=== PATIENT | male | born 1955 | race Caucasian/White ===

== ENCOUNTER 2021-02-24 16:25 | Inpatient (IN) | payer OTHER ==
[~2021-02-24] VITALS: Ht 193 cm; Wt 121.5 kg
[2021-02-24 18:14] LABS: Hematocrit 39.5 % (41.0-53.0); Hemoglobin 13.4 g/dL (13.5-17.5); Mean Corpuscular Hemoglobin 30.5 pg (28.0-32.0); Mean Corpuscular Volume 89.8 fL (80.0-100.0); Red Cell Distribution Width 14.1 % (11.8-14.3); White Blood Cell 13.6 10^3/uL (4.4-10.8)
[2021-02-24 18:18] LABS: Basophils % (manual) 0 (0.0-2.0); Blast Cells 0; Metamyelocytes % 0; Myelocytes % 0; Promyelocytes % 0
[2021-02-24 18:24] LABS: Albumin 1.9 g/dL (3.4-5.0); BUN/Creatinine Ratio 20.2; Calcium 8.6 mg/dL (8.5-10.1); Potassium 3.9 mmol/L (3.5-5.1)
[2021-02-24 18:26] LABS: Band Neutrophils % (manual) 1; Eosinophils % (manual) 1 (0-7); Lymphocytes % (manual) 9 (10.0-50.0); Monocytes % (manual) 12 (0-12)
[2021-02-24 18:27] LABS: Reactive Lymphocytes 1
[2021-02-24 18:28] LABS: Bilirubin, Total 1.5 mg/dL (0.2-1.0); Total Protein 7.4 g/dL (6.4-8.2)
[2021-02-24] MEDS ORDERED: DexAMETHasone SOD PHOS 10MG/1ML VIAL INJ IV ONE (19:15)
[2021-02-24] MEDS ORDERED: AZITHROMYCIN 500MG/ 250ML 250 ML IV ONE (19:15)
[2021-02-24 21:12] LABS: Urine Bacteria NONE SEEN /hpf (None Seen); Urine Blood Negative /uL (Negative); Urine Hyaline Cast FEW /lpf (0 - 2); Urine Mucus FEW (None Seen); Urine Specific Gravity 1.021 (1.001-1.035); Urine WBC 2 /hpf (0 - 3)
[2021-02-24] MEDS ORDERED: HYDROcodone-ACET 5/325MG TAB PO PRN (21:15)
[2021-02-24] MEDS ORDERED: DOCUSATE SOD 100 MG CAP PO PRN (21:15)
[2021-02-24] MEDS ORDERED: ONDANSETRON HCL 4 MG/2 ML VIAL IV PRN (21:15)
[2021-02-24] MEDS ORDERED: ACETAMINOPHEN 500 MG TAB PO PRN (21:15)
[2021-02-24] MEDS: FAMOTIDINE (10MG/ML) 2ML VL IV SCH (21:45)
[2021-02-24] MEDS: ENOXAPARIN SOD 40 MG/0.4 ML SYRINGE SC SCH (21:45)
[2021-02-24] MEDS: SODIUM CHLOR 0.9% PF (SALINE LOCK) 10ML VIAL/SYR IV SCH (21:45)
[2021-02-24 21:57] LABS: INR 1.49 (0.9-1.15)
[2021-02-24] MEDS: BUDESONIDE (INHALATION) 180 MCG IH IN SCH (22:00)
[2021-02-24 22:39] VITALS: BP 133/83
[2021-02-24] MEDS ORDERED: NITROGLYCERIN 0.4 MG SL TAB SL PRN (23:15)
[2021-02-24] MEDS ORDERED: MORPHINE SULFATE INJECTION 2 MG/ML SYRG IV PRN (23:15)
[2021-02-24] MEDS ORDERED: hydrALAZINE HCL 20 MG/ML VL IV PRN (23:45)
[2021-02-25 01:14] VITALS: BP 133/66
[2021-02-25] MEDS ORDERED: LISI-716 PO (01:55)
[2021-02-25] MEDS ORDERED: LOSA25TA38 PO (01:55)
[2021-02-25] MEDS ORDERED: BENZ100C97 PO (01:55)
[2021-02-25 04:59] VITALS: BP 129/71
[2021-02-25 05:44] LABS: Hematocrit 40.8 % (41.0-53.0); Hemoglobin 13.8 g/dL (13.5-17.5); Mean Corpuscular Hemoglobin 30.6 pg (28.0-32.0); Mean Corpuscular Hgb Conc. 33.9 g/dL (32.0-36.0); Mean Corpuscular Volume 90.2 fL (80.0-100.0); Red Blood Cells 4.52 10^6/uL (4.5-5.90); White Blood Cell 12.6 10^3/uL (4.4-10.8)
[2021-02-25 05:55] LABS: Basophils % (manual) 0 (0.0-2.0); Blast Cells 0; Eosinophils % (manual) 0 (0-7); Metamyelocytes % 0; Promyelocytes % 0; Reactive Lymphocytes 0
[2021-02-25 06:11] LABS: Calcium 8.8 mg/dL (8.5-10.1); Potassium 4.7 mmol/L (3.5-5.1)
[2021-02-25 06:20] LABS: BUN/Creatinine Ratio 21.3; Bilirubin, Total 1.4 mg/dL (0.2-1.0); Total Protein 7.9 g/dL (6.4-8.2)
[2021-02-25] MEDS: SODIUM CHLOR 0.9% PF (SALINE LOCK) 10ML VIAL/SYR IV SCH ×3 (06:34→22:20)
[2021-02-25 07:00] LABS: Band Neutrophils % (manual) 8; Lymphocytes % (manual) 7 (10.0-50.0); Monocytes % (manual) 4 (0-12); Myelocytes % 1
[2021-02-25 09:00] VITALS: BP 136/85
[2021-02-25] MEDS: BUDESONIDE (INHALATION) 180 MCG IH IN SCH ×2 (10:00→19:40)
[2021-02-25] MEDS: cefTRIAXone 1GM/50ML D5W 50 ML IV SCH (10:01)
[2021-02-25] MEDS: DexAMETHasone SOD PHOS 10MG/1ML VIAL INJ IV SCH (10:01)
[2021-02-25] MEDS: FAMOTIDINE (10MG/ML) 2ML VL IV SCH ×2 (10:01→22:20)
[2021-02-25] MEDS: MULTIPLE VITAMIN TAB PO SCH (10:02)
[2021-02-25] MEDS: ASCORBIC ACID 1,000 MG TAB PO SCH (10:02)
[2021-02-25] MEDS: ZINC SULFATE 220mg CAP or TAB PO SCH (10:02)
[2021-02-25] MEDS: ENOXAPARIN SOD 40 MG/0.4 ML SYRINGE SC SCH ×2 (10:02→22:20)
[2021-02-25] MEDS: CHOLECALCIFEROL (VITD3) 2,000 UNIT CAP/TAB PO SCH (10:02)
[2021-02-25] MEDS: AZITHROMYCIN 500MG/ 250ML 250 ML IV SCH (11:05)
[2021-02-25] MEDS ORDERED: REMDESIVIR PER PHARMACY 0 ML IV SCH (11:15)
[2021-02-25] MEDS ORDERED: IOHEXOL 300 MG/ML 100ML BOTTLE IJ ONE (11:58)
[2021-02-25 12:41] VITALS: BP 138/77
[2021-02-25] MEDS ORDERED: REMDESIVIR 200 MG in NS 210ml LOADING DOSE ADULT IV ONE (15:00)
[2021-02-25 17:00] VITALS: BP 138/77
[2021-02-25] MEDS ORDERED: IOHEXOL 350 MG/ML 100ML IJ ONE (17:42)
[2021-02-25] MEDS: ALBUTEROL SULF HFA 90MCG INH 200DOSE IN PRN (19:40)
[2021-02-25 22:00] VITALS: BP 152/85
[2021-02-26 06:00] VITALS: BP 107/61
[2021-02-26] MEDS: SODIUM CHLOR 0.9% PF (SALINE LOCK) 10ML VIAL/SYR IV SCH ×3 (06:26→22:44)
[2021-02-26] MEDS: ALBUTEROL SULF HFA 90MCG INH 200DOSE IN PRN ×2 (06:28→21:22)
[2021-02-26] MEDS: BUDESONIDE (INHALATION) 180 MCG IH IN SCH ×2 (06:28→18:55)
[2021-02-26 07:34] LABS: Basophils # (auto) 0.1 10 ^3/uL (0-0.2); Basophils % (auto) 0.6 % (0.0-2.0); Eosinophils # (auto) 0.1 10 ^3/uL (0-0.8); Eosinophils % (auto) 0.7 % (0.0-7.0); Hematocrit 37.2 % (41.0-53.0); Hemoglobin 12.7 g/dL (13.5-17.5); Lymphocytes # (auto) 1.9 10 ^3/uL (0.4-5.4); Lymphocytes % (auto) 15.8 % (10.0-50.0); Mean Corpuscular Hemoglobin 30.8 pg (28.0-32.0); Mean Corpuscular Hgb Conc. 34.1 g/dL (32.0-36.0); Mean Corpuscular Volume 90.4 fL (80.0-100.0); Monocytes # (auto) 1.3 10 ^3/uL (0-1.3); Monocytes % (auto) 10.9 % (0.0-12.0); Neutrophils # (auto) 8.8 10 ^3/uL (1.6-8.6); Nucleated Red Blood Cells % 0.1 %; Red Blood Cells 4.11 10^6/uL (4.5-5.90); Red Cell Distribution Width 14.4 % (11.8-14.3); White Blood Cell 12.2 10^3/uL (4.4-10.8)
[2021-02-26 07:43] LABS: Calcium 8.5 mg/dL (8.5-10.1); Potassium 4.4 mmol/L (3.5-5.1)
[2021-02-26 07:50] LABS: BUN/Creatinine Ratio 28.4; Bilirubin, Total 0.7 mg/dL (0.2-1.0); Total Protein 6.5 g/dL (6.4-8.2)
[2021-02-26 09:00] VITALS: BP 138/71
[2021-02-26] MEDS: cefTRIAXone 1GM/50ML D5W 50 ML IV SCH (09:24)
[2021-02-26] MEDS: MULTIPLE VITAMIN TAB PO SCH (09:24)
[2021-02-26] MEDS: DexAMETHasone SOD PHOS 10MG/1ML VIAL INJ IV SCH (09:24)
[2021-02-26] MEDS: FAMOTIDINE (10MG/ML) 2ML VL IV SCH ×2 (09:24→22:44)
[2021-02-26] MEDS: ZINC SULFATE 220mg CAP or TAB PO SCH (09:24)
[2021-02-26] MEDS: CHOLECALCIFEROL (VITD3) 2,000 UNIT CAP/TAB PO SCH (09:27)
[2021-02-26] MEDS: ASCORBIC ACID 1,000 MG TAB PO SCH (09:27)
[2021-02-26] MEDS: ENOXAPARIN SOD 40 MG/0.4 ML SYRINGE SC SCH ×2 (09:27→22:44)
[2021-02-26] MEDS: AZITHROMYCIN 500MG/ 250ML 250 ML IV SCH (11:02)
[2021-02-26] MEDS ORDERED: FUROSEMIDE 20 MG/2 ML VIAL IV ONE (11:30)
[2021-02-26] MEDS ORDERED: POTASSIUM CHL 20 Meq TABLET PO ONE (11:30)
[2021-02-26 13:00] VITALS: BP 126/78
[2021-02-26] MEDS: REMDESIVIR 100mg 100 MG in SODIUM CHL 0.9% 230 ML IV SCH (14:06)
[2021-02-26 17:00] VITALS: BP 138/79
[2021-02-26 22:00] VITALS: BP 119/61
[2021-02-27 04:48] VITALS: BP 107/68
[2021-02-27] MEDS: BUDESONIDE (INHALATION) 180 MCG IH IN SCH ×2 (05:54→20:21)
[2021-02-27] MEDS: ALBUTEROL SULF HFA 90MCG INH 200DOSE IN PRN ×2 (05:54→20:21)
[2021-02-27 07:22] LABS: Albumin 2.5 g/dL (3.4-5.0); Potassium 4.7 mmol/L (3.5-5.1)
[2021-02-27 07:28] LABS: BUN/Creatinine Ratio 31.4; Bilirubin, Total 0.8 mg/dL (0.2-1.0); Calcium 8.9 mg/dL (8.5-10.1); Total Protein 7.2 g/dL (6.4-8.2)
[2021-02-27 09:00] VITALS: BP 117/77
[2021-02-27] MEDS: ZINC SULFATE 220mg CAP or TAB PO SCH (09:12)
[2021-02-27] MEDS: FUROSEMIDE 20 MG/2 ML VIAL IV SCH (09:12)
[2021-02-27] MEDS: FAMOTIDINE (10MG/ML) 2ML VL IV SCH (09:12)
[2021-02-27] MEDS: DexAMETHasone SOD PHOS 10MG/1ML VIAL INJ IV SCH (09:12)
[2021-02-27] MEDS: cefTRIAXone 1GM/50ML D5W 50 ML IV SCH (09:12)
[2021-02-27] MEDS: POTASSIUM CHL 20 Meq TABLET PO SCH (09:13)
[2021-02-27] MEDS: CHOLECALCIFEROL (VITD3) 2,000 UNIT CAP/TAB PO SCH (09:13)
[2021-02-27] MEDS: MULTIPLE VITAMIN TAB PO SCH (09:13)
[2021-02-27] MEDS: ENOXAPARIN SOD 40 MG/0.4 ML SYRINGE SC SCH ×2 (09:13→22:32)
[2021-02-27] MEDS: ASCORBIC ACID 1,000 MG TAB PO SCH (09:13)
[2021-02-27] MEDS: AZITHROMYCIN 500MG/ 250ML 250 ML IV SCH (10:29)
[2021-02-27 13:00] VITALS: BP 125/84
[2021-02-27] MEDS: SODIUM CHLOR 0.9% PF (SALINE LOCK) 10ML VIAL/SYR IV SCH ×2 (14:53→22:32)
[2021-02-27] MEDS: REMDESIVIR 100mg 100 MG in SODIUM CHL 0.9% 230 ML IV SCH (14:53)
[2021-02-27 17:00] VITALS: BP 136/79
[2021-02-27 22:00] VITALS: BP 143/73
[2021-02-28 02:30] VITALS: BP 143/73
[2021-02-28 05:00] VITALS: BP 138/79
[2021-02-28] MEDS: SODIUM CHLOR 0.9% PF (SALINE LOCK) 10ML VIAL/SYR IV SCH ×3 (05:07→22:10)
[2021-02-28] MEDS: ALBUTEROL SULF HFA 90MCG INH 200DOSE IN PRN ×2 (05:51→18:09)
[2021-02-28] MEDS: BUDESONIDE (INHALATION) 180 MCG IH IN SCH ×2 (05:52→18:09)
[2021-02-28 06:38] LABS: Basophils # (auto) 0.1 10 ^3/uL (0-0.2); Basophils % (auto) 0.7 % (0.0-2.0); Eosinophils # (auto) 0 10 ^3/uL (0-0.8); Eosinophils % (auto) 0.4 % (0.0-7.0); Hemoglobin 12.9 g/dL (13.5-17.5); Lymphocytes # (auto) 2.5 10 ^3/uL (0.4-5.4); Lymphocytes % (auto) 23.1 % (10.0-50.0); Mean Corpuscular Hemoglobin 30.3 pg (28.0-32.0); Mean Corpuscular Hgb Conc. 33.9 g/dL (32.0-36.0); Mean Corpuscular Volume 89.2 fL (80.0-100.0); Monocytes # (auto) 1.2 10 ^3/uL (0-1.3); Monocytes % (auto) 11.7 % (0.0-12.0); Neutrophils # (auto) 6.9 10 ^3/uL (1.6-8.6); Neutrophils % (auto) 64.1 % (37.0-80.0); Nucleated Red Blood Cells % 0.1 %; Red Blood Cells 4.26 10^6/uL (4.5-5.90); Red Cell Distribution Width 14.2 % (11.8-14.3); White Blood Cell 10.7 10^3/uL (4.4-10.8)
[2021-02-28 06:55] LABS: Albumin 2.2 g/dL (3.4-5.0); Calcium 8.9 mg/dL (8.5-10.1); Potassium 4.7 mmol/L (3.5-5.1)
[2021-02-28 06:57] LABS: Bilirubin, Total 0.8 mg/dL (0.2-1.0); Total Protein 6.4 g/dL (6.4-8.2)
[2021-02-28 08:39] VITALS: BP 133/66
[2021-02-28] MEDS: FAMOTIDINE 20 MG TAB PO SCH (10:25)
[2021-02-28] MEDS: cefTRIAXone 1GM/50ML D5W 50 ML IV SCH (10:25)
[2021-02-28] MEDS: ZINC SULFATE 220mg CAP or TAB PO SCH (10:25)
[2021-02-28] MEDS: CHOLECALCIFEROL (VITD3) 2,000 UNIT CAP/TAB PO SCH (10:25)
[2021-02-28] MEDS: DexAMETHasone SOD PHOS 10MG/1ML VIAL INJ IV SCH (10:25)
[2021-02-28] MEDS: ASCORBIC ACID 1,000 MG TAB PO SCH (10:25)
[2021-02-28] MEDS: MULTIPLE VITAMIN TAB PO SCH (10:25)
[2021-02-28] MEDS: FUROSEMIDE 20 MG/2 ML VIAL IV SCH (10:25)
[2021-02-28] MEDS: POTASSIUM CHL 20 Meq TABLET PO SCH (10:25)
[2021-02-28] MEDS: ENOXAPARIN SOD 40 MG/0.4 ML SYRINGE SC SCH ×2 (10:29→22:10)
[2021-02-28] MEDS: AZITHROMYCIN 500MG/ 250ML 250 ML IV SCH (11:18)
[2021-02-28 12:31] VITALS: BP 120/64
[2021-02-28] MEDS: REMDESIVIR 100mg 100 MG in SODIUM CHL 0.9% 230 ML IV SCH (15:38)
[2021-02-28 16:43] VITALS: BP 125/72
[2021-02-28 22:00] VITALS: BP 103/63
[2021-03-01 05:12] VITALS: BP 132/55
[2021-03-01] MEDS: SODIUM CHLOR 0.9% PF (SALINE LOCK) 10ML VIAL/SYR IV SCH ×2 (05:43→13:13)
[2021-03-01 06:22] LABS: Potassium 4.4 mmol/L (3.5-5.1)
[2021-03-01 06:30] LABS: Albumin 2.6 g/dL (3.4-5.0); BUN/Creatinine Ratio 32.9; Bilirubin, Total 0.9 mg/dL (0.2-1.0); Calcium 9.1 mg/dL (8.5-10.1); Total Protein 7.1 g/dL (6.4-8.2)
[2021-03-01] MEDS: BUDESONIDE (INHALATION) 180 MCG IH IN SCH (07:50)
[2021-03-01] MEDS: ALBUTEROL SULF HFA 90MCG INH 200DOSE IN PRN (07:50)
[2021-03-01 08:31] VITALS: BP 120/81
[2021-03-01] MEDS: ZINC SULFATE 220mg CAP or TAB PO SCH (10:39)
[2021-03-01] MEDS: POTASSIUM CHL 20 Meq TABLET PO SCH (10:39)
[2021-03-01] MEDS: DexAMETHasone SOD PHOS 10MG/1ML VIAL INJ IV SCH (10:39)
[2021-03-01] MEDS: cefTRIAXone 1GM/50ML D5W 50 ML IV SCH (10:39)
[2021-03-01] MEDS: FUROSEMIDE 20 MG/2 ML VIAL IV SCH (10:39)
[2021-03-01] MEDS: ENOXAPARIN SOD 40 MG/0.4 ML SYRINGE SC SCH (10:40)
[2021-03-01] MEDS: MULTIPLE VITAMIN TAB PO SCH (10:40)
[2021-03-01] MEDS: ASCORBIC ACID 1,000 MG TAB PO SCH (10:40)
[2021-03-01] MEDS: FAMOTIDINE 20 MG TAB PO SCH (10:40)
[2021-03-01] MEDS: CHOLECALCIFEROL (VITD3) 2,000 UNIT CAP/TAB PO SCH (10:40)
[2021-03-01] MEDS: AZITHROMYCIN 500MG/ 250ML 250 ML IV SCH (11:49)
[2021-03-01 12:45] VITALS: BP 119/74
[2021-03-01] MEDS: REMDESIVIR 100mg 100 MG in SODIUM CHL 0.9% 230 ML IV SCH (15:00)
[2021-03-01 16:48] VITALS: BP 134/73
== END 2021-03-01 17:14 | disposition home or self-care (01) | DRG 871 ==
LOC: EDBD 16:25 → ER 16:25 → TELE 23:11 → TELE-EAST 23:54
PROVIDERS: ADMIT Nurse Practitioner Family; ATTEND Internal Medicine
PROC: XW033E5 Introduction of Remdesivir Anti-infective into Peripheral Vein, Percutaneous Approach, New Technology Group 5 (ICD-10-PCS; principal; 2021-02-25)
DX: A41.89 Other specified sepsis (principal); U07.1 COVID-19; J12.82 Pneumonia due to coronavirus disease 2019; J96.01 Acute respiratory failure with hypoxia; E88.09 Other disorders of plasma-protein metabolism, not elsewhere classified; I10 Essential (primary) hypertension; Z85.46 Personal history of malignant neoplasm of prostate; D89.839 Cytokine release syndrome, grade unspecified; E66.9 Obesity, unspecified; K76.0 Fatty (change of) liver, not elsewhere classified; Z79.82 Long term (current) use of aspirin; Z68.29 Body mass index [BMI] 29.0-29.9, adult; R59.0 Localized enlarged lymph nodes; R16.1 Splenomegaly, not elsewhere classified
CPT/HCPCS: 36415; 36600; 71045; 71260; 74177; 80053; 81001; 82728; 82805; 83036; 83605; 83615; 83735; 84484; 85007; 85025; 85027; 85379; 85610; 86141; 87040; 87426; 93005; 94640; 96365; 96366; 96375; G0378; J0696; J1100; J3490